=== PATIENT | female | born 1955 | race Caucasian/White ===

== ENCOUNTER 2017-07-26 20:09 | Emergency (ER) | payer MEDICAID, MEDICARE, OTHER ==
[~2017-07-26 20:09] MED LIST: FLUV100C PO; LORTA5 PO; POLY10O RIGHT EYE; RITA20TA PO; TRAZ100 PO
== END 2017-07-26 22:15 | disposition left against medical advice (07) ==
LOC: PHED 20:09
DX: R11.2 Nausea with vomiting, unspecified (principal)
CPT/HCPCS: 99281